=== PATIENT | female | born 1950 | race Caucasian/White ===

== ENCOUNTER 2017-07-19 15:29 | Outpatient (CLI) | payer MEDICARE ==
[2017-07-19 16:03] LABS: Mean Platelet Volume 7.3 fL (7.4-10.4); Red Blood Cell (RBC) Count 4.38 mill/uL (4.20-5.40); White Blood Cell (WBC) Count 6.7 thou/uL (4.8-10.8)
[2017-07-19 16:11] LABS: PTT 35.8 SEC (22.9-36.1)
[2017-07-19 16:32] LABS: Anion Gap 13 mmol/L (10-20); BUN (Urea Nitrogen) 13 mg/dL (9.8-20.1); Calc. Creatinine Clearance 0 mL/min (70-130); Calcium 9.1 mg/dL (7.8-10.44); Carbon Dioxide 23 mmol/L (23-31); Chloride 108 mmol/L (98-107); Estimated GFR-MDRD 68
== END 2017-07-19 15:30 | disposition home or self-care (01) ==
LOC: LABBT 15:29
PROVIDERS: ATTEND Specialist
DX: Z01.818 Encounter for other preprocedural examination (principal); Z51.81 Encounter for therapeutic drug level monitoring; I48.91 Unspecified atrial fibrillation; Z79.01 Long term (current) use of anticoagulants
CPT/HCPCS: 80048; 85027; 85610; 85730

== ENCOUNTER 2017-08-05 11:39 | Observation (INO) | payer MEDICARE ==
[2017-08-05 12:18] LABS: #Eosinphils 0.1 thou/uL (0.0-0.7); #Monocytes 0.6 thou/uL (0.11-0.59); #Neutrophils 3.5 thou/uL (1.40-6.50); %Basophils 0.6 % (0.0-1.0); %Eosinophils 1.1 % (0.0-10.0); %Lymphocytes 32.2 % (21.0-51.0); %Monocytes 9.1 % (0.0-10.0); Hematocrit 44.6 % (36.0-47.0); Mean Platelet Volume 7.2 fL (7.4-10.4); Red Blood Cell (RBC) Count 4.57 mill/uL (4.20-5.40); White Blood Cell (WBC) Count 6.1 thou/uL (4.8-10.8)
[2017-08-05 12:28] LABS: PTT 42.5 SEC (22.9-36.1); Prothrombin Time 19.2 SEC (12.0-14.7)
[2017-08-05 12:36] LABS: Anion Gap 13 mmol/L (10-20); BUN (Urea Nitrogen) 16 mg/dL (9.8-20.1); Calc. Creatinine Clearance 97 mL/min (70-130); Calcium 9.4 mg/dL (7.8-10.44); Carbon Dioxide 24 mmol/L (23-31); Chloride 107 mmol/L (98-107); Estimated GFR-MDRD 78
[2017-08-05] MEDS ORDERED: Heparin 10,000 UNITS/1 ML VIAL ONE ×3 (13:08→13:53)
[2017-08-05] MEDS ORDERED: Heparin 0 ML ONE (13:08)
[2017-08-05] MEDS ORDERED: Phenylephrine 10 MG/NS 250 ML 250 ML ONE (13:29)
[2017-08-05] MEDS ORDERED: Fentanyl 100 MCG/2 ML VIAL ONE ×2 (13:29→16:34)
[2017-08-05] MEDS ORDERED: Promethazine HCl 25 MG/ML VIAL ONE (13:29)
[2017-08-05] MEDS ORDERED: Iopamidol 370 76% 50 ML VIAL FS ONE (13:37)
[2017-08-05] MEDS ORDERED: Dexamethasone 20 MG/5 ML VIAL ONE (13:45)
[2017-08-05] MEDS ORDERED: Propofol 200 MG/20 ML VIAL ONE (13:45)
[2017-08-05] MEDS ORDERED: Glycopyrrolate 0.2 MG/ML 5 ML SYRINGE ONE (13:45)
[2017-08-05] MEDS ORDERED: Ondansetron HCl/PF 4 MG/2 ML Vial ONE (13:45)
[2017-08-05] MEDS ORDERED: Furosemide 40 MG/4 ML VIAL ONE (13:53)
[2017-08-05] MEDS ORDERED: Protamine Sulfate 50 MG/5 ML VIAL ONE (13:53)
[2017-08-05] MEDS ORDERED: Isoproterenol 0.2 MG/1 ML AMP ONE (15:08)
[2017-08-05] MEDS ORDERED: Promethazine HCl 25 MG/ML VIAL IM PRN (15:41)
[2017-08-05] MEDS ORDERED: Promethazine HCl 25 MG/ML VIAL SLOW IVP PRN (15:41)
[2017-08-05] MEDS ORDERED: Ondansetron HCl/PF 4 MG/2 ML Vial IVP PRN ×2 (15:41→16:17)
[2017-08-05] MEDS ORDERED: Bisacodyl 10 MG SUPP PR PRN (16:17)
[2017-08-05] MEDS ORDERED: diphenhydrAMINE 25 MG CAP PO PRN (16:17)
[2017-08-05] MEDS ORDERED: Mag-Al 1200 mg/1200 mg/30 ML UDCUP PO PRN (16:17)
[2017-08-05] MEDS ORDERED: traMADol HCl 50 MG TAB PO PRN (16:17)
[2017-08-05] MEDS ORDERED: Temazepam 15 MG CAP PO PRN (16:17)
[2017-08-05] MEDS ORDERED: Nitroglycerin 0.4 MG TAB (25 Tab Bottle) SL PRN (16:17)
[2017-08-05] MEDS ORDERED: Silver Sulfadiazine 1% Cream 50 GM JAR TOP PRN (16:17)
[2017-08-05] MEDS ORDERED: Acetaminophen 325 MG TAB PO PRN (16:17)
[2017-08-05] MEDS ORDERED: Bisacodyl 5 MG TAB PO PRN (16:17)
[2017-08-05 17:35] VITALS: BMI 26.5
[2017-08-05] MEDS: Sucralfate 1 GM TAB PO SCH ×2 (18:22→20:39)
--- NOTE | 2017-08-05 22:56 | CCL ---
PREOPERATIVE DIAGNOSIS: Atrial fibrillation. PROCEDURE PERFORMED: Atrial fibrillation ablation. PROCEDURE DETAILS: The patient came to the EP lab in the postabsorptive state. Informed consent wa s obtained. A out was called. The patient was sedated by a member, the Anesthesia staff. Once pat ient adequately sedated, the left and right femoral areas were prepped and draped in usual sterile f ashion as was the internal jugular area. Using ultrasound guidance, access was obtained x1 in the r ight femoral vein, x2 in the left femoral vein and x1 in the right internal jugular vein. Through the right internal jugular vein, a 7 Emirati sheath was placed and through that a 20 pole Duodeca cat heter was placed into the distal 10 poles in the coronary sinus for left atrial pacing and recording . A 10 Emirati ice catheter was advanced to the left femoral vein. Through a 10 Emirati sheath and p laced in the right atrium for intracardiac monitoring and guidance. Two [address] d in the right femoral vein and these were exchanged for long sheaths for transseptal puncture. Hep anabel bolus was given prior to transseptal function puncture a transseptal puncture was performed in the posterior septum under intracardiac echo guidance. A 10 pole 20 mm circular mapping catheter wa s advanced to the left atrium and with this catheter a 3 dimensional geometry was made through the a natomical mapping system Carto. A Carto ablation catheter was advanced and radiofrequency ablation w as applied around the pulmonary veins for isolation of all four pulmonary veins. In addition, ablat ion was delivered to the posterior wall of the left atrium. Ablation time was titrated with concern over esophageal temperature location and temperature utilizing an esophageal temperature probe. Af ter this, the veins were isolated and isoproterenol bolus was given with no evidence of extra pulmon adrian vein triggers or firing. Final numbers were as follows: Cycle length 745, IN 166, QRS 71, QTC 3 18, AH 97, HV 42. Left ventricular pacing was also initiated. The total RF time was 24.7 minutes. Total fluoroscopy time was 17.4 minutes. The prior catheters were then removed. Protamine was given and hemostasis obtained with manual pres sure. COMPLICATIONS: None acute. ESTIMATED BLOOD LOSS: Less than 30 mL PROCEDURE PERFORMED: EP study, pulmonary vein isolation. Additional ablation for atrial fibrillati on, CS and LA recording, LV pacing recording, drug infusion, 3D mapping, intracardiac echo, transse ptal puncture. CONCLUSIONS: 1. Paroxysmal atrial fibrillation. 2. Successful radiofrequency ablation for atrial fibrillation. RECOMMENDATIONS: The patient will be at bed rest. She will follow up with electrophysiology in 6-8 weeks and she will continue anticoagulant therapy as well as flecainide for now.
[2017-08-06] MEDS ORDERED: Topiramate 25 MG TAB PO SCH (09:00)
[2017-08-06] MEDS ORDERED: BOSWELLIA SERRA PO SCH (09:00)
[2017-08-06] MEDS ORDERED: Fish Oil 1,000 MG CAP PO SCH (09:00)
[2017-08-06] MEDS ORDERED: Metoprolol Tartrate 25 MG TAB PO SCH (09:00)
[2017-08-06] MEDS ORDERED: GLUCOSAMINE PO SCH (09:00)
[2017-08-06] MEDS ORDERED: COCONUT OIL 1000 MG PO SCH (09:00)
[2017-08-06] MEDS ORDERED: Rivaroxaban 10 MG TAB PO SCH (09:00)
[2017-08-06] MEDS ORDERED: Ascorbic Acid 500 mg Chewable Tablet PO SCH (09:00)
[2017-08-06] MEDS ORDERED: D3 PO SCH (09:00)
[2017-08-06] MEDS: Sucralfate 1 GM TAB PO SCH ×2 (09:18→13:36)
[2017-08-06 11:28] VITALS: BP 99/56; TEMP 98.3
--- NOTE | 2017-08-06 23:40 | PRG ---
DATE OF SERVICVE: 08/06/2017 SUBJECTIVE: Ms. Khan seems to be doing well one day post her pulmonary venous isolation procedure. OBJECTIVE DATA: VITAL SIGNS: Blood pressure is 99/56, heart rate 52, respiration 16, temperature 98.3 degrees Fahrenheit. PHYSICAL EXAMINATION: GENERAL: Alert and oriented woman, in no apparent distress. NECK: Supple. Jugular veins not distended. CHEST: Coarse. No crackles. HEART: Sounds are regular rate and rhythm, no murmur or gallop. ABDOMEN: Benign. Bowel sounds positive. EXTREMITIES: Lower extremities without edema, clubbing or cyanosis. DATABASE: EKGs and telemetry strips reviewed, reveals sinus rhythm with short atrial tachyarrhythmia run is noted overnight, spontaneously is resolving. ASSESSMENT AND PLAN: Ms. Khan is a pleasant 67-year-old woman with a history of paroxysmal atrial fibrillation, previously on suppression with flecainide, now she underwent pulmonary venous isolation procedure. She seems to be doing well one day post-procedure. Our plan is to discharge home without flecainide. She is advised to resume her anticoagulants, which is rivaroxaban 20 mg a day. She is also given Carafate and also will take Protonix 40 mg a day post-procedure. She has requested follow up in our office in 6 weeks or earlier if symptoms dictate. TUSHAR
--- NOTE | 2017-08-09 13:24 | EKG ---
Test Reason : PREOP Blood Pressure : / mmHG Vent. Rate : 060 BPM Atrial Rate : 060 BPM P-R Int : 182 ms QRS Dur : 086 ms QT Int : 442 ms P-R-T Axes : 072 015 032 degrees QTc Int : 442 ms Normal sinus rhythm Premature ectopic complexes When compared with ECG of 14-OCT-2011 12:39, No significant change was found Confirmed by MAILE MARCUS ([id number]) on 08/09/2017 1:24:24 PM Referred By: PARVEEN Confirmed By:MAILE MARCUS
--- NOTE | 2017-08-09 13:31 | EKG ---
Test Reason : Blood Pressure : / mmHG Vent. Rate : 074 BPM Atrial Rate : 074 BPM P-R Int : 162 ms QRS Dur : 092 ms QT Int : 432 ms P-R-T Axes : 071 -01 024 degrees QTc Int : 479 ms Normal sinus rhythm Nonspecific T wave abnormality Borderline ECG Confirmed by MAILE MARCUS ([id number]) on 08/09/2017 1:30:42 PM Referred By: PARVEEN Confirmed By:MAILE MARCUS
--- NOTE | 2017-08-09 15:54 | EKG ---
Test Reason : Blood Pressure : / mmHG Vent. Rate : 059 BPM Atrial Rate : 059 BPM P-R Int : 162 ms QRS Dur : 092 ms QT Int : 460 ms P-R-T Axes : 076 016 023 degrees QTc Int : 455 ms Sinus bradycardia Otherwise normal ECG Confirmed by MAILE MARCUS ([id number]) on 08/09/2017 3:54:25 PM Referred By: PARVEEN Confirmed By:MAILE MARCUS
== END 2017-08-06 14:15 | disposition home or self-care (01) ==
LOC: CCL 11:39 → 2SW 16:22
PROVIDERS: ADMIT Specialist; ATTEND Specialist
DX: I48.0 Paroxysmal atrial fibrillation (principal); I10 Essential (primary) hypertension; E66.9 Obesity, unspecified; Z68.26 Body mass index [BMI] 26.0-26.9, adult; Z88.8 Allergy status to other drugs, medicaments and biological substances; Z88.2 Allergy status to sulfonamides; Z79.899 Other long term (current) drug therapy
CPT/HCPCS: 36005; 75820; 76942; 80048; 85025; 85347 ×2; 85610; 85730; 93005 ×2; 93613; 93622; 93623; 93656; 93657; 93662; 96374; C1731; C1769; G0378; 36415; 93010; J1100; J1644; J1940; J2405; J2550; J2704; J2720; J3010

== ENCOUNTER 2018-02-01 15:42 | Outpatient (CLI) | payer MEDICARE ==
[2018-02-01 16:29] LABS: Hemoglobin 13.7 g/dL (12.0-16.0); Mean Corpuscular Hemoglobin 32.5 pg (27.0-31.0); Mean Corpuscular Volume 95.8 fl (81.0-99.0); Platelet Count 299 thou/uL (130-400); RBC Distribution Width 11.7 % (11.5-14.5); Red Blood Cell (RBC) Count 4.21 mill/uL (4.20-5.40); White Blood Cell (WBC) Count 5.6 thou/uL (4.8-10.8)
[2018-02-01 16:35] LABS: INR-International Normal Ratio 1.3; PTT 40.6 SEC (22.9-36.1); Prothrombin Time 16.4 SEC (12.0-14.7)
[2018-02-01 16:50] LABS: Anion Gap 12 mmol/L (10-20); BUN (Urea Nitrogen) 12 mg/dL (9.8-20.1); Calc. Creatinine Clearance 0 mL/min (70-130); Calcium 9.8 mg/dL (7.8-10.44); Carbon Dioxide 28 mmol/L (23-31); Chloride 106 mmol/L (98-107); Estimated GFR-MDRD 78; Glucose 99 mg/dL (80-115); Potassium 3.8 mmol/L (3.5-5.1); Sodium 142 mmol/L (136-145)
--- NOTE | 2018-02-06 08:45 | EKG ---
Test Reason : Blood Pressure : / mmHG Vent. Rate : 067 BPM Atrial Rate : 067 BPM P-R Int : 160 ms QRS Dur : 086 ms QT Int : 404 ms P-R-T Axes : 071 029 048 degrees QTc Int : 426 ms Normal sinus rhythm Normal ECG When compared with ECG of 06-AUG-2017 06:51, No significant change was found Confirmed by JASON NAGEL MD ([id number]) on 02/06/2018 8:45:06 AM Referred By: HÉCTOR Confirmed By:JASON NAGEL MD
== END 2018-02-01 15:43 | disposition home or self-care (01) ==
LOC: LABBT 15:42
PROVIDERS: ATTEND Internal Medicine Cardiovascular Disease
DX: Z01.818 Encounter for other preprocedural examination (principal); I48.91 Unspecified atrial fibrillation; Z88.2 Allergy status to sulfonamides; Z88.8 Allergy status to other drugs, medicaments and biological substances
CPT/HCPCS: 80048; 85027; 85610; 85730; 93005; 93010

== ENCOUNTER 2018-02-03 08:57 | Day surgery (SDC) | payer MEDICARE ==
[2018-02-03] MEDS ORDERED: Heparin 10,000 UNITS/1 ML VIAL ONE ×2 (10:06→12:47)
[2018-02-03] MEDS ORDERED: Lidocaine 1% (PF) 30 ML VIAL ONE (10:06)
[2018-02-03] MEDS ORDERED: Propofol 500 MG/50 ML VIAL ONE (10:54)
[2018-02-03] MEDS ORDERED: Phenylephrine HCL 10 MG/ML VIAL ONE (11:06)
[2018-02-03] MEDS ORDERED: Fentanyl 250 MCG/5 ML VIAL ONE (11:16)
[2018-02-03] MEDS ORDERED: Propofol 1,000 MG/100 ML VIAL IV ONE ×2 (11:36→12:38)
[2018-02-03] MEDS ORDERED: Isoproterenol 0.2 MG/1 ML AMP ONE (11:53)
[2018-02-03] MEDS ORDERED: Protamine Sulfate 50 MG/5 ML VIAL ONE (13:53)
[2018-02-03] MEDS ORDERED: Fentanyl 100 MCG/2 ML VIAL ONE (14:26)
[2018-02-03 15:30] VITALS: BMI 27.6
[2018-02-03] MEDS ORDERED: Non-Formulary Medication 1 EACH PO PRN (15:58)
[2018-02-03] MEDS ORDERED: Promethazine HCl 25 MG/ML VIAL IM/IV PRN (15:58)
[2018-02-03] MEDS ORDERED: Ondansetron HCl/PF 4 MG/2 ML Vial IVP PRN (15:58)
[2018-02-03] MEDS ORDERED: PHENYLEPHRINE-NS 100 MCG/ML 10 ML SYRINGE ONE (16:46)
[2018-02-03] MEDS ORDERED: Ondansetron HCl/PF 4 MG/2 ML Vial ONE (16:46)
[2018-02-03] MEDS ORDERED: Heparin 30,000 units/30 ml VIAL ONE (16:46)
[2018-02-03] MEDS ORDERED: Dexamethasone 20 MG/5 ML VIAL ONE (16:46)
[2018-02-03] MEDS ORDERED: Potassium Chloride 20 MEQ TAB PO SCH (17:00)
[2018-02-03] MEDS ORDERED: Furosemide 20 MG/2 ML VIAL SLOW IVP SCH (17:00)
--- NOTE | 2018-02-03 17:02 | OP ---
DATE OF PROCEDURE: 02/03/2018 PROCEDURES: 1. Comprehensive EP testing with and without left atrial pacing and recording. 2. Transseptal catheterization x2. 3. Intracardiac echocardiography. 4. 3D mapping ablation. CLINICAL INDICATION: Atrial fibrillation. VENEER GLUER: Dion Thorne M.D. ASA CLASSIFICATION: 3. ANESTHESIA: Total IV anesthesia followed by general endotracheal anesthesia. ADDITIONAL CARDIAC MEDICATIONS: Isoproterenol 10 mcg per minute infusion. Total heparin given 21,00 0 units. Total protamine given 40 mg. ACUTE COMPLICATIONS: None apparent. METHODS: After informed consent was obtained, the patient taken to the EP lab in fasting state. Bot h groins were prepped and draped using ultrasound guidance. Right and left femoral veins were access ed and a 10 Romanian and 8 Romanian sheath placed in left groin. Two 8 Romanian sheaths were placed in rig ht groin. All 8 Romanian sheaths were placed by long sheaths for catheter stability. A 10 Romanian echo probe placed in left groin advanced to the right atrium and right ventricle for imaging. A 20 pole catheter placed in left groin advanced to the coronary sinus and in the nikki terminalis. A circula r ablation catheter placed in the right groin advanced into the right atrium and 3D map was obtained of the right atrium and the coronary sinus. Transseptal catheterization was performed and a 3D map w as obtained at the left atrium. Temperature probe was placed in the esophagus and monitored temperat ures during the posterior wall ablation. Pulmonary veins were isolated at the beginning of the proce dure from previous ablation. Patient had spontaneous firing from the appendage and from the coronary sinus. The coronary sinus was ablated distally and the appendage was delayed, but was not completel y isolated. Extensive ablation was also performed of the roof the left atrium. No lesions were requ ired in the right atrium other than within the coronary sinus itself. At the conclusion of procedure , catheters were removed. Sheaths were pulled. Hemostasis was achieved direct pressure. RESULTS: 1. Baseline intervals, HV interval 45 milliseconds. 2. Atrial function. The patient was in sinus rhythm but had spontaneous atrial tachycardia from the CS and frequent PACs from the appendage. Both of these were ablated as described in method section. 3. Ablation details total of 51 minutes and 18 seconds of RF were delivered with an open, irrigated noncontact for sensing BiosCeQurter ablation catheter. IMPRESSION: Ablation of the left atrium including isolation of the roof. A delay in the coronary si nus and isolation of the distal CS for treatment of atrial tachycardia and atrial fibrillation. RECOMMENDATION: Antibiotic prophylaxis.
[2018-02-03] MEDS ORDERED: Prevnar 13-Val Conj/PF 0.5 ML SYRINGE IM ONE (17:30)
[2018-02-03] MEDS: Colchicine 0.6 MG TAB PO SCH (20:21)
[2018-02-04] MEDS ORDERED: Multivit, Therapeutic 1 TAB PO SCH (09:00)
[2018-02-04] MEDS ORDERED: Ascorbic Acid 500 mg Chewable Tablet PO SCH (09:00)
[2018-02-04] MEDS ORDERED: Rivaroxaban 10 MG TAB PO SCH (09:00)
[2018-02-04] MEDS ORDERED: COCONUT OIL 1000 MG PO SCH (09:00)
[2018-02-04] MEDS ORDERED: Topiramate 25 MG TAB PO SCH (09:00)
[2018-02-04] MEDS ORDERED: Fish Oil 1,000 MG CAP PO SCH (09:00)
[2018-02-04] MEDS ORDERED: Metoprolol Tartrate 25 MG TAB PO SCH (09:00)
[2018-02-04] MEDS: Colchicine 0.6 MG TAB PO SCH (09:14)
[2018-02-04 11:42] VITALS: TEMP 97.9
[2018-02-04 11:48] VITALS: BP 138/88
[2018-02-04] MEDS ORDERED: Metoprolol Tartrate 5 MG/5 ML VIAL IVP SCH (13:01)
[2018-02-04] MEDS ORDERED: Flecainide 50 MG TAB PO SCH ×2 (13:15→21:00)
--- NOTE | 2018-02-04 21:45 | DIS ---
Mariela Otero, FUNMI-C, dictating as scribe for Allen Zelaya M.D. ATTENDING PHYSICIAN: Allen Zelaya M.D. OPERATING PHYSICIAN: Dion Thorne M.D. DATE OF ADMISSION: 02/03/2018 DATE OF DISCHARGE: 02/04/2018 FINAL DIAGNOSIS: Recurrent atrial fibrillation. PROCEDURES PERFORMED: Include ablation of the left atrium including isolation with roof. A delay in the CS and isolation of the distal CS for treatment of atrial tachycardia and atrial fibrillation. Total of 51 minutes and 18 seconds RF energy lesions delivered. HISTORY OF PRESENT ILLNESS: Ms. Khan is a very pleasant 67-year-old female known to our practice f or history of atrial arrhythmias. She initially underwent ablation for atrial fibrillation in ; however, had recurrence of her arrhythmias as well frequent PACs and an atypical atrial flutter, p rompting redo ablation that was performed this hospitalization. She received extensive ablation and was placed on colchicine. Her recovery has been uneventful. Her groin sites are stable without gina dori and just mild tenderness. She has been up ambulating normally and tolerating p.o. intake and vo iding normally. Vital signs have been stable. She maintained sinus rhythm overnight with rates in t he 60s. However, at 11:30 this morning, she did convert into atrial fibrillation with rate between 1 20 and 130 beats per minute. She maintained in AFib for 2 hours and then spontaneously converted shala k to a sinus rhythm. For this reason, we will have to resume her flecainide of 50 mg b.i.d. in addit ion to continuing metoprolol 25 mg daily as taken before. Despite going back into atrial fibrillatio n, she remained asymptomatic and is feeling well today. She is also to continue her Xarelto without interruption for the next 3 months. The patient will follow up in clinic in 4-6 weeks or sooner if n eeded. DISCHARGE MEDICATIONS: Vitamin C daily; vitamin D3 daily; coconut oil daily; new prescription for Co lcrys 0.6 mg p.o. b.i.d.; fish oil daily; flecainide 50 mg b.i.d.; Lasix 40 mg daily x3 days, then as needed for shortness of breath and swelling; metoprolol succinate 25 mg daily; multivitamin daily; P rotonix 40 mg daily x1 month; potassium chloride 20 mEq daily x3 days, then as needed only if taking Lasix; Xarelto 20 mg daily; Carafate 1 gram p.o. q.i.d. x2 weeks; and topiramate 50 mg p.o. daily. DISCHARGE INSTRUCTIONS: No soaking baths or lifting greater than 25 pounds for the next one week. R ecommend heart healthy diet. After one week, the patient is to resume normal activity gradually and as tolerated. She will follow up in clinic in 4-6 weeks or sooner if needed for any recurrence of sy mptoms or concerns she may have in the interim. The patient already has an event monitor at home for continued arrhythmia monitoring.
--- NOTE | 2018-02-06 08:49 | EKG ---
Test Reason : POST ABLATION Blood Pressure : / mmHG Vent. Rate : 068 BPM Atrial Rate : 068 BPM P-R Int : 178 ms QRS Dur : 090 ms QT Int : 450 ms P-R-T Axes : 075 031 035 degrees QTc Int : 478 ms Normal sinus rhythm Normal ECG When compared with ECG of 01-FEB-2018 16:15, (Unconfirmed) QT has lengthened Confirmed by SHONA JOHN, JASON ([id number]) on 02/06/2018 8:49:15 AM Referred By: HÉCTOR Confirmed By:JASON NAGEL MD
--- NOTE | 2018-02-06 08:52 | EKG ---
Test Reason : Blood Pressure : / mmHG Vent. Rate : 058 BPM Atrial Rate : 058 BPM P-R Int : 180 ms QRS Dur : 090 ms QT Int : 468 ms P-R-T Axes : 086 024 027 degrees QTc Int : 459 ms Sinus bradycardia Otherwise normal ECG When compared with ECG of 03-FEB-2018 14:44, (Unconfirmed) No significant change was found Confirmed by SHONA JOHN, JASON ([id number]) on 02/06/2018 8:52:13 AM Referred By: HÉCTOR Confirmed By:JASON NAGEL MD
--- NOTE | 2018-02-06 08:53 | EKG ---
Test Reason : ? AFIB Blood Pressure : / mmHG Vent. Rate : 124 BPM Atrial Rate : 166 BPM P-R Int : 000 ms QRS Dur : 088 ms QT Int : 326 ms P-R-T Axes : 000 012 -07 degrees QTc Int : 468 ms Atrial fibrillation with rapid ventricular response Nonspecific ST abnormality , probably digitalis effect Abnormal ECG Confirmed by SHONA JOHN, JASON ([id number]) on 02/06/2018 8:53:24 AM Referred By: [facility] Confirmed By:JASON NAGLE MD
== END 2018-02-04 15:02 | disposition home or self-care (01) ==
LOC: CCL 08:57 → 2SW 15:26 → 2NO 02-04 14:33 → 2SW 02-04 14:38 → CCL 02-04 15:02
PROVIDERS: ATTEND Internal Medicine Cardiovascular Disease
PROC: 02583ZZ Destruction of Conduction Mechanism, Percutaneous Approach (ICD-10-PCS; principal; 2018-02-03)
PROC: 02K83ZZ Map Conduction Mechanism, Percutaneous Approach (ICD-10-PCS; 2018-02-03)
PROC: 4A023FZ Measurement of Cardiac Rhythm, Percutaneous Approach (ICD-10-PCS; 2018-02-03)
PROC: 4A0234Z Measurement of Cardiac Electrical Activity, Percutaneous Approach (ICD-10-PCS; 2018-02-03)
DX: I48.1 Persistent atrial fibrillation (principal); Z88.2 Allergy status to sulfonamides; Z88.8 Allergy status to other drugs, medicaments and biological substances; Z79.01 Long term (current) use of anticoagulants; Z79.899 Other long term (current) drug therapy; Z98.890 Other specified postprocedural states
CPT/HCPCS: 76942; 85347 ×2; 93005 ×2; 93613; 93623; 93656; 93657; 93662; 96374; C1731; C1732 ×3; C1759; C1769; 93010; J1100; J1644; J1940; J2001; J2370; J2405; J2704; J2720; J3010

== ENCOUNTER 2018-02-22 15:46 | Outpatient (CLI) | payer MEDICARE ==
[2018-02-22 16:21] LABS: Hemoglobin 13.6 g/dL (12.0-16.0); Mean Corpuscular HGB CONC 33.1 g/dL (32.0-36.0); Mean Corpuscular Hemoglobin 31.7 pg (27.0-31.0); Mean Corpuscular Volume 95.8 fl (81.0-99.0); Platelet Count 328 thou/uL (130-400); RBC Distribution Width 11.8 % (11.5-14.5); Red Blood Cell (RBC) Count 4.29 mill/uL (4.20-5.40); White Blood Cell (WBC) Count 5.6 thou/uL (4.8-10.8)
[2018-02-22 16:27] LABS: INR-International Normal Ratio 1.3; Prothrombin Time 16.4 SEC (12.0-14.7)
[2018-02-22 16:28] LABS: PTT 37.4 SEC (22.9-36.1)
[2018-02-22 16:40] LABS: Anion Gap 14 mmol/L (10-20); BUN (Urea Nitrogen) 14 mg/dL (9.8-20.1); Calc. Creatinine Clearance 0 mL/min (70-130); Calcium 9.2 mg/dL (7.8-10.44); Carbon Dioxide 23 mmol/L (23-31); Chloride 107 mmol/L (98-107); Estimated GFR-MDRD 78; Glucose 100 mg/dL (80-115); Sodium 140 mmol/L (136-145)
== END 2018-02-22 15:47 | disposition home or self-care (01) ==
LOC: LABBT 15:46
PROVIDERS: ATTEND Internal Medicine Cardiovascular Disease
DX: Z01.818 Encounter for other preprocedural examination (principal); I48.91 Unspecified atrial fibrillation
CPT/HCPCS: 80048; 85027; 85610; 85730; 93005; 93010

== ENCOUNTER 2019-09-07 14:42 | Inpatient (IN) | payer MEDICARE ==
[2019-09-07] MEDS ORDERED: Diltiazem 125 MG/25 ML ONE ×2 (14:48→16:47)
[2019-09-07 15:16] LABS: #Lymphocytes 1.9 thou/uL (1.20-3.40); #Monocytes 0.9 thou/uL (0.11-0.59); #Neutrophils 8.3 thou/uL (1.40-6.50); %Basophils 0.2 % (0.0-1.0); %Eosinophils 0.1 % (0.0-10.0); %Lymphocytes 17.1 % (21.0-51.0); %Monocytes 7.7 % (0.0-10.0); %Neutrophils 74.9 % (42.0-75.0); Hemoglobin 13.6 g/dL (12.0-16.0); Mean Corpuscular HGB CONC 32.9 g/dL (32.0-36.0); Mean Corpuscular Hemoglobin 31.2 pg (27.0-31.0); Mean Platelet Volume 7.6 fL (7.4-10.4); Platelet Count 365 thou/uL (130-400); RBC Distribution Width 12.2 % (11.5-14.5); Red Blood Cell (RBC) Count 4.34 mill/uL (4.20-5.40); White Blood Cell (WBC) Count 11.1 thou/uL (4.8-10.8)
--- NOTE | 2019-09-07 15:19 | RAD ---
Chest AP view INDICATION: Chest pain COMPARISON: October 14, 2011 FINDINGS: Lungs:The lungs are clear Cardiac silhouette:There is stable [id number] cardiomegaly. Vascular calcifications of the aort ic arch are stable. Pulmonary vasculature:Normal Pleural spaces:No pleural effusion or pneumothorax is demonstrated. Upper abdomen:No abnormality seen. Osseous structures: No acute osseous abnormality. Additional findings:None. IMPRESSION: No acute cardiopulmonary abnormality.
[2019-09-07 15:36] LABS: Chloride 108 mmol/L (98-107); Sodium 139 mmol/L (136-145)
[2019-09-07 15:47] LABS: ALT (SGPT) 52 U/L (8-55); AST (SGOT) 42 U/L (5-34); Albumin 4.3 g/dL (3.4-4.8); Alkaline Phosphatase 66 U/L (40-110); BUN (Urea Nitrogen) 32 mg/dL (9.8-20.1); Bilirubin, Total 0.7 mg/dL (0.2-1.2); CK (CPK) 60 U/L (29-168); Calc. Creatinine Clearance 0 mL/min (70-130); Calcium 9.3 mg/dL (7.8-10.44); Carbon Dioxide 24 mmol/L (23-31); Estimated GFR-MDRD 57; Globulin 2.9 g/dL (2.4-3.5); Glucose 127 mg/dL (80-115); Protein, Total 7.2 g/dL (6.0-8.3)
[2019-09-07 15:54] LABS: Anion Gap 11 mmol/L (10-20)
[2019-09-07 16:00] LABS: CKMB 2.7 ng/mL (0-6.6)
[2019-09-07] MEDS ORDERED: Aspirin Chewable 81 MG TAB ONE (16:47)
[2019-09-07] MEDS ORDERED: Digoxin 0.125 MG TAB ONE (16:58)
[2019-09-07] MEDS ORDERED: Acetaminophen 650 MG Suppository PR PRN (17:14)
[2019-09-07] MEDS ORDERED: Bisacodyl 5 MG TAB PO PRN (17:14)
[2019-09-07] MEDS ORDERED: Acetaminophen 325 MG TAB PO PRN (17:14)
[2019-09-07] MEDS ORDERED: Ondansetron PF 4 MG/2 ML Vial IVP PRN (17:14)
[2019-09-07] MEDS ORDERED: Diltiazem 125 MG in Sodium Chloride 0.9% 100 ML IVPB SCH (17:30)
--- NOTE | 2019-09-07 18:05 | HP ---
PRIMARY CARE PROVIDER: Dr. Luis Montejo. CHIEF COMPLAINT: Generalized weakness. HISTORY OF PRESENT ILLNESS: Ms. hKan is a pleasant 69-year-old lady, who was seen at [facility] on September 07, 2019. She has a history of atrial fibrillation, for which she underwent ablations in the past. The last one was in January 2018. She sees Dr. Ortiz for cardiology and Dr. Zelaya and Dr. Thorne for electrophysiology. She reports that she was doing well until 2 days ago. Two days ago, she developed palpitations. She checked her heart rate. She found that it was in the 170s. The palpitations resolved that night. She went to work yesterday and was fine. She went to work today. Today, she felt she was weak all over the body. She also found that she had to take deep breaths to feel comfortable. She went to [facility] and was advised to go to the emergency room here since most of her cardiology care is at this hospital. REVIEW OF SYSTEMS: All systems were reviewed and found to be negative except for the pertinent positives mentioned above. PAST MEDICAL HISTORY: Nephrolithiasis and atrial fibrillation. PAST SURGICAL HISTORY: Appendectomy and cardiac ablation x2. FAMILY HISTORY: Atrial fibrillation in her mother and myocardial infarction in her maternal grandfather. SOCIAL HISTORY: No history of tobacco use, alcohol use, or recreational drug use. ALLERGIES: NO KNOWN DRUG ALLERGIES. CURRENT MEDICATIONS: These need to be clarified, but in the past, she was on 1. Vitamin C. 2. Vitamin D3. 3. Coconut oil. 4. Fish oil. 5. Flecainide. 6. Lopressor. 7. Multivitamins. 8. Rivaroxaban. 9. Topiramate. 10. Colchicine. PHYSICAL EXAMINATION: GENERAL: Ms. Khan is awake and alert, not in acute distress. VITAL SIGNS: Blood pressure is 140/93, pulse 128, respiratory rate 16, and oxygen saturation 99% on room air. She is afebrile. EYES: No scleral icterus, no conjunctival pallor. ENT: Moist mucosal membranes. No oropharyngeal erythema or exudates. NECK: Supple, nontender, trachea is midline. RESPIRATORY: Accessory muscles of breathing are not active. Chest wall movements are symmetric bilaterally. Lungs are clear to auscultation without wheeze, rhonchi, or crepitations. CARDIOVASCULAR: S1 and S2 are heard, tachycardic and irregular. Peripheral pulses palpable. ABDOMEN: Soft, nontender, bowel sounds heard. NEUROLOGIC: Cranial nerves 2 through 12 are intact. MUSCULOSKELETAL: Power is 5/5 in all 4 extremities. SKIN: No rashes or subcutaneous nodules. LYMPHATIC: No cervical lymphadenopathy. PSYCHIATRIC: Normal mood, normal affect, the patient is oriented to person, place, and time. LABS: Ms. Khan's labs and investigations were reviewed. I reviewed her electrocardiogram, which shows atrial fibrillation with rapid ventricular response. I also reviewed her chest x-ray, which does not show any pulmonary infiltrates. She has mild leukocytosis with 11,100 white cells, of which 75% are neutrophils, normal hemoglobin, normal platelet count, normal sodium, normal potassium, normal creatinine, elevated blood urea nitrogen of 32, indeterminate troponin-I of 0.256, elevated BNP of 712.5, mildly elevated AST of 42, otherwise unremarkable liver profile and normal TSH. ASSESSMENT AND PLAN: Ms. Khan is a pleasant 69-year-old lady, who was seen at [facility] on September 07, 2019. Her problem list includes: 1. Atrial fibrillation with rapid ventricular response: The patient has been started on a Cardizem drip, which I will continue. She will be admitted to telemetry floor. Cardiology Service will be consulted for opinion and help with management. 2. Nephrolithiasis: Not an acute issue at this time. 3. Indeterminate troponin-I: Most likely secondary to atrial fibrillation with rapid ventricular response. We will recheck troponin level. 4. Abnormal LFTs: The patient has isolated elevation of AST, elevation is mild, could be secondary to volume overload/congestive heart failure, since she is also presenting with elevated BNP. We will recheck LFTs. Many thanks for allowing me to participate in your patient's care. Please feel free to contact me with any questions or concerns. LEVEL OF RISK: High. LEVEL OF COMPLEXITY: High. Job ID: [id number]
[2019-09-07 18:33] LABS: Troponin I 0.233 ng/mL (< 0.028)
[2019-09-07 19:17] VITALS: BMI 28.1
[2019-09-07 21:32] LABS: Troponin I 0.227 ng/mL (< 0.028)
[2019-09-08 04:45] LABS: #Lymphocytes 1.8 thou/uL (1.20-3.40); #Monocytes 0.7 thou/uL (0.11-0.59); %Basophils 0.2 % (0.0-1.0); %Eosinophils 0.5 % (0.0-10.0); %Lymphocytes 24.3 % (21.0-51.0); %Monocytes 8.8 % (0.0-10.0); %Neutrophils 66.3 % (42.0-75.0); Mean Corpuscular HGB CONC 30.5 g/dL (32.0-36.0); Mean Corpuscular Hemoglobin 28.9 pg (27.0-31.0); Mean Corpuscular Volume 94.6 fL (78.0-98.0); Mean Platelet Volume 7.5 fL (7.4-10.4); Platelet Count 343 thou/uL (130-400); RBC Distribution Width 12.2 % (11.5-14.5); Red Blood Cell (RBC) Count 4.51 mill/uL (4.20-5.40); White Blood Cell (WBC) Count 7.5 thou/uL (4.8-10.8)
[2019-09-08 05:03] LABS: Anion Gap 9 mmol/L (10-20); BUN (Urea Nitrogen) 24 mg/dL (9.8-20.1); Calc. Creatinine Clearance 98 mL/min (70-130); Calcium 8.5 mg/dL (7.8-10.44); Carbon Dioxide 24 mmol/L (23-31); Chloride 110 mmol/L (98-107); Estimated GFR-MDRD 83; Glucose 126 mg/dL (80-115); Potassium 3.9 mmol/L (3.5-5.1); Sodium 139 mmol/L (136-145)
[2019-09-08 05:05] LABS: ALT (SGPT) 53 U/L (8-55); AST (SGOT) 35 U/L (5-34); Albumin 3.9 g/dL (3.4-4.8); Alkaline Phosphatase 63 U/L (40-110); Bilirubin, Direct 0.2 mg/dL (0.1-0.3); Bilirubin, Total 0.6 mg/dL (0.2-1.2); Protein, Total 6.6 g/dL (6.0-8.3)
[2019-09-08] MEDS ORDERED: ASCORBIC ACID PO SCH (09:00)
[2019-09-08] MEDS ORDERED: Non-Formulary Item 1 EACH (Topiramate [Topiramate] 50 MG) PO SCH (09:00)
[2019-09-08] MEDS ORDERED: DICLOFENAC SODIUM 75 MG PO SCH (09:00)
[2019-09-08] MEDS ORDERED: Non-Formulary Item 1 EACH (Multivitamin [Multivitamins] 1 CAP) PO SCH (09:00)
[2019-09-08] MEDS ORDERED: CHOLECALCIFEROL PO SCH (09:00)
[2019-09-08] MEDS ORDERED: [UNRECOGNIZED DRUG - OTHER] PO SCH (09:00)
[2019-09-08] MEDS ORDERED: COCONUT OIL PO SCH (09:00)
[2019-09-08] MEDS ORDERED: Non-Formulary Item 1 EACH (Rivaroxaban [Xarelto] 20 MG) PO SCH (09:00)
[2019-09-08] MEDS ORDERED: Metoprolol Tartrate 25 MG TAB PO SCH (09:00)
[2019-09-08] MEDS: Ascorbic Acid 500 mg Chewable Tablet PO SCH (10:34)
[2019-09-08] MEDS: Fish Oil 1,000 MG CAP PO SCH (10:34)
[2019-09-08] MEDS: Topiramate 25 MG TAB PO SCH (10:35)
[2019-09-08] MEDS: Rivaroxaban 10 MG TAB PO SCH (10:35)
[2019-09-08] MEDS: Multivit, Therapeutic 1 TAB PO SCH (10:35)
[2019-09-08] MEDS ORDERED: Lidocaine 1% PF 5 ML VIAL ONE ×2 (11:07→15:46)
[2019-09-08] MEDS ORDERED: PROPOFOL 200 MG/20 ML VIAL ONE (11:07)
[2019-09-08] MEDS ORDERED: Flecainide 50 MG TAB PO SCH ×2 (13:41→14:00)
--- NOTE | 2019-09-08 15:27 | PDOC.HOSPP ---
- Subjective Encounter Date: 09/08/19 Encounter Time: 08:20 Subjective: Pt seen for followup re:afib with rvr. feels well, no complaints. - Objective Vital Signs & Weight: Vital Signs (12 hours) Temp Pulse Resp BP Pulse Ox 09/08/19 11:50 97.9 F 93 16 155/97 H 97 09/08/19 07:05 97.7 F 86 16 126/84 99 Weight Weight 180 lb I&O: 09/07/19 09/08/19 09/09/19 06:59 06:59 06:59 Intake Total 330 Balance 330 Result Diagrams: 09/08/19 04:05 09/09/19 09:25 Additional Labs: Labs and MARs reviewed by me EKG Reviewed by me: Yes (Tele: sebastien pearson) Hospitalist ROS - Review of Systems Cardiovascular: denies: chest pain, palpitations, orthopnea, paroxysmal noc. dyspnea, edema, light headedness Gastrointestinal: denies: nausea, vomiting, abdominal pain, diarrhea, constipation, melena, hematochezia - Medication Medications: Active Medications Generic Name Dose Route Start Last Admin Trade Name Ciroq PRN Reason Stop Dose Admin Ascorbic Acid 1,500 mg 09/08/19 09:00 09/08/19 10:34 Vitamin C PO 1,500 mg DAILY RADHA Administration Cholecalciferol 2,000 units 09/08/19 09:00 09/08/19 10:35 Vitamin D3 PO 2,000 units DAILY RADHA Administration Fish Oil 2,000 mg 09/08/19 09:00 09/08/19 10:34 Fish Oil PO 2,000 mg DAILY RADHA Administration Diltiazem HCl 125 mg/ Sodium 125 mls @ 7.5 mls/hr 09/07/19 17:30 09/08/19 08: 56 Chloride IVPB 125 mls INF RADHA Administration Protocol 7.5 MG/HR Multivitamins 1 tab 09/08/19 09:00 09/08/19 10:35 Theragran PO 1 tab DAILY RADHA Administration Rivaroxaban 20 mg 09/08/19 09:00 09/08/19 10:35 Xarelto PO 20 mg DAILY RADHA Administration Sodium Chloride 10 ml 09/08/19 09:00 09/08/19 10:36 Flush - Normal Saline IVF 10 ml Q12HR RADHA Administration Topiramate 50 mg 09/08/19 09:00 09/08/19 10:35 Topamax PO 50 mg DAILY RADHA Administration - Exam General Appearance: NAD Eye: anicteric sclera ENT: moist mucosa Neck: supple, no JVD Heart: no rubs, irregular Respiratory: CTAB Gastrointestinal: soft, non-tender Extremities: no edema Psychiatric: normal affect, normal behavior Hosp A/P (1) Atrial fibrillation with RVR Code(s): I48.91 - UNSPECIFIED ATRIAL FIBRILLATION Status: Acute (2) Acute myocardial infarction Code(s): I21.9 - ACUTE MYOCARDIAL INFARCTION, UNSPECIFIED Status: Deleted Qualifiers: Myocardial infarction type: type 2 Qualified Code(s): I21.A1 - Myocardial infarction type 2 - Plan out of bed/ambulate Continue CCB. Await cardiology opinion.
[2019-09-08] MEDS ORDERED: PROPOFOL 0 ML ONE (15:38)
[2019-09-08] MEDS ORDERED: PROPOFOL 20 ML ONE (15:39)
--- NOTE | 2019-09-08 16:04 | CON ---
DATE OF CONSULTATION: PRIMARY CARE DOCTOR: Dr. Luis Montejo. PRIMARY MULTIPLEX OPERATOR: Dr. Ortiz. REASON FOR CARDIOLOGY CONSULT: Atrial fibrillation with right rapid ventricular response. HISTORY OF PRESENT ILLNESS: Ms. Khan is a very present 69-year-old female with a significant history of atrial fibrillation status post atrial fibrillation ablation in January 2018, hypertension. After the patient underwent atrial fibrillation cardioversion in January 2018, the patient was doing relatively well, but this Wednesday night, the patient started having palpitation in her chest. She took extra of metoprolol 25 mg half tablet at night. From morning, she started feeling more tired years and the patient needs to take a deep breath. On Wednesday, she went to [place] and [facility], and the patient was found to have heart rate elevated and fluctuated blood pressure. Due to those findings, the patient was recommend to present to the emergency department for further evaluation and treatment. At the ER, the patient was found to have atrial fibrillation with heart rate 170. Right now, the patient's heart rate has been 70s to 80s with occasional up to the 150 with movement with diltiazem . Prior to this event, during, and at this moment, the patient denied any cardiac admission, chest pain, heaviness, tightness, dizziness, lightheadedness, or any other cardiac complaints except feeling fatigued and shortness of breath. The patient had an echocardiogram done at Dr. Ortiz's office in October 2018 with EF 55% to 60%, mild left atrium enlargement, mild left ventricular dilation, moderate to severe mitral valve regurgitation, moderate tricuspid regurgitation, and dilated IVC. The patient had a stress test done in June 2018 with no reversible ischemia. PAST MEDICAL HISTORY: Atrial fibrillation with ablation, hypertension, hyperlipidemia, goiter. PAST SURGICAL HISTORY: Appendectomy, atrial fibrillation ablation in January 2018. FAMILY HISTORY: The patient's mother had a history of atrial fibrillation. The patient's maternal side has extensive hypertension, myocardial infarction. The patient's maternal grandfather due to PA at the age of 69. The patient's brother has a history of atrial fibrillation and hypertension. The patient another brother due to cardiac arrest at the age of 71. The patient's two sister had a history of CVA. SOCIAL HISTORY: The patient is . She has four children who living well, however, one of her son has CVA at the age of 20. They were told that that was from a congenital problem. The patient denies ETOH, tobacco abuse, or illicit drug abuse. She does not do exercise, but she is very active at work. 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 She drinks 1 to 2 cup of decaf caffeinated coffee on the weekend only. ALLERGIES: SHE HAS NO KNOWN DRUG ALLERGIES. HOME MEDICATIONS: 1. She is on topiramate 50 mg once a day. 2. Metoprolol succinate 25 mg once a day. 3. Coconut oil 1000 mg 2 tablets once a day. 4. Vitamin C 1500 mg once a day. 5. Multivitamin 1 tablet once a day. 6. Fish oil 2000 mg once a day. 7. Vitamin D3 2000 unit once a day. 8. Xarelto 20 mg once a day. 9. Diclofenac sodium 75 mg once a day. REVIEW OF SYSTEMS: Twelve-point review of systems negative unless otherwise mentioned in the HPI. PHYSICAL EXAMINATION: VITAL SIGNS: Blood pressure 155/97, temperature 97.9, pulse is 93, respiratory rate 16, O2 saturation 97% on room air. GENERAL: The patient is alert and oriented x4, not in acute distress. HEENT: Normocephalic and atraumatic. Eyes; extraocular muscle movement intact. She wears glasses. ENT and mouth, oral and nasal mucosa moist without lesion. NECK: Supple. Normal range of motion. No JVD. RESPIRATORY: Clear to auscultate bilaterally. No wheezing, rales, or rhonchi noted. CARDIOVASCULAR: Irregularly regular. No S3 or S4. No significant hives, or thrill noted. Murmur at the left lateral chest. 2+ pulses in bilateral upper and lower extremities. No edema in the lower extremities. Carotid pulses are present without bruit noted. ABDOMEN: Soft, nontender. No mass to palpitate. Bowel sounds are present. MUSCULOSKELETAL: The patient is able to move all extremities. SKIN: Warm and dry. No lesion, rash, or erythema noted. NEUROLOGIC: The patient is alert and oriented x4. Nonfocal. PSYCHIATRIC: The patient's mood is appropriate. LABORATORY DATA: WBC is 7.5, hemoglobin 13.0, hematocrit 42.6, platelets 343. Sodium 139, potassium 3.9, BUN 24, creatinine 0.70, glucose 126. AST 35, ALT 53. CK-MB 2.7, creatine kinase is 60. Troponin 0.256, 0.233, 0.227. BNP 712.5. TSH 1.5666. The patient's chest x-ray shows no acute cardiopulmonary abnormality. ASSESSMENT AND PLAN: 1. Atrial fibrillation with rapid ventricular response. The patient is n.p.o. right now. The patient is asymptomatic. The patient's stress test on June 2018, shows no reversible ischemia. The patient's echocardiogram in October 2018, showed normal except mitral valve regurgitation. The patient's heart rate is stable with diltiazem . At this moment, she has been on the Xarelto more than 1 year. She is going to undergo a cardioversion today by Dr. Zapien; however, prior to the procedure, the patient is going to have a flecainide. Hopefully, she is going to convert back to sinus rhythm prior to the patient have a cardioversion, and she is on metoprolol succinate 25 mg once a day. 2. Hypertension. The patient's blood pressure has been stable with current medication. We would like to continue to monitor. 3. Indeterminate troponin, secondary to atrial fibrillation with rapid ventricular rate. Thank you very much for Cardiology Service to participate in the care of this patient. We will follow along the patient's care team and make further recommendations as appropriate. Job ID: [id number]
[2019-09-08] MEDS: Flecainide 50 MG TAB PO SCH (20:34)
[2019-09-08] MEDS: Hydrocortisone 1% Cream 30 GM TUBE TOP SCH (20:34)
--- NOTE | 2019-09-08 23:50 | OP ---
DATE OF PROCEDURE: 09/08/19 INDICATION FOR PROCEDURE: This is a 69-year-old female who was admitted with atrial fibrillation and rapid ventricular response on medial management. Continued to be in atrial fibrillation. She has been on oral anticoagulation f or a long time. She has undergone ablations in the past but had recurrence of the atrial fibrillation . She was advised to undergo electrical cardioversion due to the tachycardia which was not controlled by the IV Diltiazem and beta blockers. CARDIOVERSION The patient was taken to the recovery area where she underwent short acting propofol. Using one attempt at 200 joules, she was successfully converted back to sinus rhythm. There were no difficulties or complications encountered.
[2019-09-09] MEDS: Flecainide 50 MG TAB PO SCH (08:45)
[2019-09-09] MEDS: Ascorbic Acid 500 mg Chewable Tablet PO SCH (08:45)
[2019-09-09] MEDS: Fish Oil 1,000 MG CAP PO SCH (08:46)
[2019-09-09] MEDS: Rivaroxaban 10 MG TAB PO SCH (08:46)
[2019-09-09] MEDS: Multivit, Therapeutic 1 TAB PO SCH (08:46)
[2019-09-09] MEDS: Topiramate 25 MG TAB PO SCH (08:47)
[2019-09-09] MEDS: Hydrocortisone 1% Cream 30 GM TUBE TOP SCH (08:47)
[2019-09-09 10:17] LABS: Anion Gap 12 mmol/L (10-20); BUN (Urea Nitrogen) 25 mg/dL (9.8-20.1); Calc. Creatinine Clearance 82 mL/min (70-130); Calcium 9.2 mg/dL (7.8-10.44); Carbon Dioxide 26 mmol/L (23-31); Chloride 106 mmol/L (98-107); Estimated GFR-MDRD 70; Glucose 95 mg/dL (80-115); Magnesium 2.1 mg/dL (1.6-2.6); Potassium 3.5 mmol/L (3.5-5.1); Sodium 140 mmol/L (136-145)
[2019-09-09] MEDS ORDERED: Potassium Chloride 20 MEQ TAB PO SCH (11:15)
[2019-09-09 11:57] VITALS: BP 158/78; TEMP 98.1
--- NOTE | 2019-09-09 14:40 | PDOC.CPN ---
- Subjective Date: 09/09/19 Time: 14:42 Interval history: The pt seen and examined. No overnight events. No cardiac complaints. - Objective Allergies/Adverse Reactions: Allergies Allergy/AdvReac Type Severity Reaction Status Date / Time almond Allergy Rash Verified 09/07/19 21:10 chlorpheniramine Allergy contraindicated Verified 02/22/18 16:10 with flecainide pseudoephedrine Allergy contraindicated Verified 02/22/18 16:10 with flecainide Sulfa (Sulfonamide Allergy contraindicated Verified 02/22/18 16:10 Antibiotics) with flecainide Vital Signs & Weight: Vital Signs Temp Pulse Resp BP Pulse Ox 09/09/19 11:46 98.1 F 55 L 19 158/78 H 97 09/09/19 08:00 97.9 F 61 16 127/60 98 09/09/19 03:16 97.7 F 55 L 18 131/68 97 Weight 175 lb 11.2 oz - Physical Exam General: alert & oriented x3 HEENT: mucus membranes moist Neck: supple neck Cardiac: regular rate and rhythm, S1/S2 Lungs: clear to auscultation Neuro: cranial nerve 2-12 intact Abdomen: unremarkable Extremities: no cyanosis Skin: clear Musculoskeletal: normal range of motion - Labs Result Diagrams: 09/08/19 04:05 09/09/19 09:25 Troponin/CKMB CK-MB (CK-2) 2.7 ng/mL (0-6.6) 09/07/19 14:58 Troponin I 0.227 ng/mL (< 0.028) H 09/07/19 20:59 - Telemetry Sinus rhythms and dysrhythmias: sinus rhythm - Assessment/Plan Assessment/Plan: 1. Afib with RVR with s/p DCCV by Dr Zapien on 09/08/2019 - remains in SR; on Flecainide 50mg BID and Xarelto 20mg qd; 2. HTN - stab 3. HLD 4. Goiter MAR reviewed * From Cardiac standpoint, the pt is stable to d/c home. * The pt will f/u with Dr Ortiz' office in 1-2 wks.
--- NOTE | 2019-09-09 15:00 | DIS ---
DATE OF ADMISSION: 09/07/2019 DATE OF DISCHARGE: 09/09/2019 DISCHARGE DISPOSITION: Home. FOLLOWUP: 1. Follow up with primary care physician, Dr. Luis Montejo in 1 week. 2. Follow up with Cardiology, Dr. John Ortiz in 2 weeks. The patient was seen and examined on the day of discharge. Denies any new complaints. No chest pain, shortness of breath, or palpitations. The patient is currently in sinus rhythm. DISCHARGE MEDICATIONS: 1. Flecainide 50 mg b.i.d. 2. Potassium chloride 10 mEq daily for next week. All other home medications were left unchanged. Repeat basic metabolic profile after 1 week is recommended. Primary care physician advised to follow. SIGNIFICANT LABS: BNP 712. Maximum troponin 0.256 with normal CK-MB. BUN 32, creatinine 0.97. INPATIENT PROCEDURES: On September 08, 2019, the patient underwent cardioversion. The patient converted to sinus rhythm after one attempt at 200 joules. BRIEF HOSPITAL COURSE: The patient is a 69-year-old female with paroxysmal atrial fibrillation, on anticoagulation, presented to the emergency room on September 07, 2019, with palpitations. She was sent to the emergency room from [facility]. Her initial heart rate in the emergency room was in 180s to 190s. She was started on Cardizem drip. She also received digoxin. The patient was evaluated by Cardiology, Dr. Zapien, who was covering for Dr. Ortiz. She underwent cardioversion. The patient remained in sinus rhythm overnight. Flecainide was added to her regimen. She has been cleared by Cardiology for discharge. FINAL DIAGNOSES: 1. Atrial fibrillation with rapid ventricular response, status post cardioversion this admission. 2. Chronic anticoagulation. 3. Type 2 myocardial infarction. 4. History of nephrolithiasis. 5. Chronic kidney disease, stage 2. 6. Mild leukocytosis on admission, probably stress induced. 7. Slightly abnormal LFTs. 8. History of radiofrequency ablation for atrial fibrillation in the past. PLAN: Plan was discussed with the patient in detail. She stated understanding. Job ID: [id number]
--- NOTE | 2019-09-11 08:48 | CON ---
DATE OF CONSULTATION: 09/08/2019 ADDENDUM: Please refer to the notes already dictated by my nurse practitioner. This is an addendum to that note. This is a 69-year-old female who has undergone ablation of atrial fibrillation on 2 occasions, last time was about a year and a half ago. Previous to that was about 2-1/2 to 3 years ago. The first time was a failed ablation. The next time, she has had a successful ablation and remained in sinus rhythm for about a year and a half. On Wednesday morning, she woke up, she had a headache and then by Wednesday evening, she noted she had atrial fibrillation with rapid ventricular response. She went to work on Wednesday, but then decided she should come to the hospital later on. She was seen yesterday, was admitted to the hospital yesterday. At this time, she remains in atrial fibrillation with rapid ventricular response. Heart rates in the 170s. She has been placed on IV diltiazem. She continues to be tachycardic. She has also been on beta blockers. She has also in the past been on flecainide. This was discontinued after the time of the cardioversion. At this time, we will try one dose of flecainide to see if she will convert to sinus rhythm and then we will schedule her for electrocardioversion of her atrial fibrillation. Otherwise, please refer to the notes dictated by my nurse practitioner. PHYSICAL EXAMINATION: VITAL SIGNS: At this time, reviewed the vital signs as noted by the nurse practitioner. We have seen this patient. We discussed the patient and the plan. CHEST: Clear to auscultation. CARDIOVASCULAR: Reveals tachycardia with an irregular rhythm. EXTREMITIES: She has no lower extremity edema. NEUROLOGIC: She is fully intact. ASSESSMENT AND PLAN: Atrial fibrillation with rapid ventricular response, which is poorly controlled on present medications. We will attempt to start her on antiarrhythmic medications and plan for electrocardioversion of the atrial fibrillation. She understands the procedure for the electrocardioversion and we will plan for that later today. For her other assessments and plans, please refer to the notes dictated by my nurse practitioner. Job ID: [id number]
--- NOTE | 2019-09-12 07:28 | PQF ---
CHIKI SZYMANSKI MARC S MD [id number] [facility]-291 [id number] CLINICAL DOCUMENTATION CLARIFICATION FORM: POST DISCHARGE Addendum to original discharge summary date: ____ Late entry note date: __ DATE: 09/12/2019 ATTN:MAILE MARCUS MD Please exercise your independent, professional judgment in responding to the clarification form. Clinical indicators are provided on the bottom of this form for your review Please check appropriate box(s): HEART FAILURE: A. TYPE: [ ] Systolic / HFrEF [ ] Diastolic / HFpEF [ ] Combined Systolic / Diastolic B. ACUITY [ ] Acute [ ] Acute on Chronic [ ] Chronic [ ] Other diagnosis [ ] Unable to determine In addition, please specify: Present on Admission (POA): [ ] Yes [ ] No [ ] Unable to determine For continuity of documentation, please document condition throughout progress notes and discharge summary. Thank You. CLINICAL INDICATORS - SIGNS / SYMPTOMS / LABS -BNP: 712.5H- Laboratory, 09/07 -elevation is mild could be secondary to volume overload/congestive heart failure- H&P, 09/07, Syd Tomas MD - Indeterminate troponin-I: Most likely sec to atrial fibrillation with RVR- H& P, 09/07, Syd Tomas MD -PMH includes cardiac arrhythmia- ED record, 09/07, Angelito Borges DO RISKS: - Atrial Fibrillation with rapid ventricular response- H&P, 09/07, Syd Tomas MD -Type 2 Myocardial infarction-DS, 09/09, Stanislav Whalen MD - CKD stage 2--DS, 09/09, Stanislav Whalen MD+ TREATMENTS: -Cardiology report, 09/08 -Cardizem.IV- MAR, 09/07 DELLD
--- NOTE | 2019-09-16 19:28 | EKG ---
Test Reason : RAPID HR Blood Pressure : / mmHG Vent. Rate : 170 BPM Atrial Rate : 058 BPM P-R Int : 000 ms QRS Dur : 072 ms QT Int : 286 ms P-R-T Axes : 000 -21 -51 degrees QTc Int : 480 ms Atrial fibrillation with rapid ventricular response Septal infarct , age undetermined Marked ST abnormality, possible inferior subendocardial injury Abnormal ECG Confirmed by ALESSIA JACKSON D.O. ([id number]), staff editor JAYDEN SANTACRUZ ([id number]) on 09/16/2019 7:27:45 PM Referred By: Confirmed By:ALESSIA JACKSON D.O.
== END 2019-09-09 13:55 | disposition home or self-care (01) | DRG 282 ==
LOC: ERS 14:42 → 2NO 18:45
PROVIDERS: ADMIT Internal Medicine; ATTEND Internal Medicine
PROC: 5A2204Z Restoration of Cardiac Rhythm, Single (ICD-10-PCS; principal; 2019-09-08)
DX: I48.0 Paroxysmal atrial fibrillation (principal); I21.A1 Myocardial infarction type 2; N18.2 Chronic kidney disease, stage 2 (mild); E78.5 Hyperlipidemia, unspecified; I12.9 Hypertensive chronic kidney disease with stage 1 through stage 4 chronic kidney disease, or unspecified chronic kidney disease; E04.9 Nontoxic goiter, unspecified; D72.829 Elevated white blood cell count, unspecified; Z79.01 Long term (current) use of anticoagulants; Z87.442 Personal history of urinary calculi; Z90.49 Acquired absence of other specified parts of digestive tract; Z88.2 Allergy status to sulfonamides; Z88.8 Allergy status to other drugs, medicaments and biological substances
CPT/HCPCS: 36415; 71045; 80048; 80053; 80076; 82550; 82553; 83735; 83880; 84443; 84484; 85025; 92960; 93005; 96361; 96365; 96366; 96376; J2001; J2704; J3490

== ENCOUNTER 2021-02-06 16:14 | Outpatient (CLI) | payer MEDICARE ==
[2021-02-06 17:03] LABS: Bilirubin Neg (Negative); Blood, Urine 250 (Negative); Clarity Cloudy (Clear); Glucose, Urine (Dipstick) Normal (Negative); Ketone, Urine Negative (Negative); Leukocyte 25 (Negative); Nitrite Negative (Negative); Protein, Urine (Dipstick) 100 mg/dl (Neg-Trace); Urobilinogen Normal mg/dL (Less than 2)
[2021-02-06 17:05] LABS: RBC/HPF Greater than 50 HPF (0-3); Squamous Epithelial 0-3 HPF (0-3)
[2021-02-06 17:06] LABS: Bacteria/HPF Rare-Few HPF (None Seen)
[2021-02-06 17:14] LABS: Anion Gap 12 mmol/L (10-20); BUN (Urea Nitrogen) 12 mg/dL (9.8-20.1); Calc. Creatinine Clearance 0 mL/min (70-130); Calcium 9.3 mg/dL (7.8-10.44); Carbon Dioxide 26 mmol/L (23-31); Chloride 106 mmol/L (98-107); Glucose 103 mg/dL (80-115); Hemoglobin 12.8 g/dL (12.0-15.5); Mean Corpuscular HGB CONC 31.7 g/dL (32.0-36.0); Mean Corpuscular Hemoglobin 30.4 pg (27.0-33.0); Mean Platelet Volume 9.9 fl (7.4-10.4); Platelet Count 374 10x3/uL (150-450); Potassium 4.1 mmol/L (3.5-5.1); RBC Distribution Width 12.5 % (11.5-14.5); Red Blood Cell (RBC) Count 4.21 10x6/uL (3.90-5.03); Sodium 140 mmol/L (136-145); White Blood Cell (WBC) Count 6.2 10x3/uL (3.5-10.5)
[2021-02-06 17:31] LABS: PTT 30.2 sec (22.0-33.0); Prothrombin Time 10.9 sec (9.5-12.1)
[2021-02-07 02:15] LABS: SARS-CoV-2 PCR by NAA Not Detected (NotDetected)
== END 2021-02-06 16:15 | disposition home or self-care (01) ==
LOC: LABBT 16:14
PROVIDERS: ATTEND Urology
DX: Z01.818 Encounter for other preprocedural examination (principal); N20.0 Calculus of kidney; Z20.822 Contact with and (suspected) exposure to COVID-19
CPT/HCPCS: 80048; 81001; 85027; 85610; 85730; 87086; 93005; U0003; U0005; 87635; 93010

== ENCOUNTER 2021-02-10 06:10 | Day surgery (SDC) | payer MEDICARE ==
[2021-02-06 15:37] VITALS: BMI 27.1
[2021-02-10 06:56] LABS: Platelet Count 367 thou/uL (130-400)
[2021-02-10] MEDS ORDERED: Fentanyl 100 MCG/2 ML VIAL ONE (07:01)
[2021-02-10 07:26] LABS: EPI 113 SEC (67-199)
[2021-02-10] MEDS ORDERED: PROPOFOL 200 MG/20 ML VIAL ONE (07:40)
[2021-02-10] MEDS ORDERED: ePHEDrine Sulfate 50 MG/10 ML VIAL ONE (07:40)
[2021-02-10] MEDS ORDERED: diphenhydrAMINE 50 MG/ML VIAL ONE (07:40)
[2021-02-10] MEDS ORDERED: Dexamethasone 20 MG/5 ML VIAL ONE (07:40)
[2021-02-10] MEDS ORDERED: Ondansetron ORAL SOLN. 4 MG/5 ML UDCUP ONE (07:40)
== END 2021-02-10 10:06 | disposition home or self-care (01) ==
LOC: SDC 06:10
PROVIDERS: ATTEND Urology
PROC: 0TF7XZZ Fragmentation in Left Ureter, External Approach (ICD-10-PCS; principal; 2021-02-10)
DX: N20.1 Calculus of ureter (principal); Z79.01 Long term (current) use of anticoagulants; Z79.899 Other long term (current) drug therapy; Z88.2 Allergy status to sulfonamides; Z88.8 Allergy status to other drugs, medicaments and biological substances; Z91.018 Allergy to other foods
CPT/HCPCS: 74018; 85576; J1100; J1200; J2704; J3010; Q0162

== ENCOUNTER 2022-04-15 14:36 | Outpatient (CLI) | payer MEDICARE | END 2022-04-15 14:37 | disposition home or self-care (01) | LOC: BICCT 14:36 | PROVIDERS: ATTEND Psychiatry & Neurology Neurology | DX: G25.0 Essential tremor (principal) | CPT/HCPCS: 70450 ==

== ENCOUNTER 2023-06-30 08:51 | Outpatient (CLI) | payer MEDICARE, OTHER | END 2023-06-30 08:52 | disposition home or self-care (01) | LOC: NM 08:51 | PROVIDERS: ATTEND Psychiatry & Neurology Neurology | DX: R25.9 Unspecified abnormal involuntary movements (principal); G20 Parkinson's disease | CPT/HCPCS: 78803; A9584 ×2 ==

== ENCOUNTER 2024-09-21 13:02 | Outpatient (CLI) | payer MEDICARE, OTHER ==
[2024-09-21 14:21] LABS: #Basophils 0.03 10x3/uL (0.0-0.2); %Basophils 0.4 % (0.0-1.0); %Eosinophils 0.8 % (0.0-10.0); %Lymphocytes 29.3 % (21.0-51.0); %Monocytes 8.5 % (0.0-10.0); %Neutrophils 60.6 % (42.0-75.0); Hemoglobin 13.7 g/dL (12.0-16.0); Mean Corpuscular HGB CONC 33.4 g/dL (32.0-36.0); Mean Corpuscular Hemoglobin 31.9 pg (27.0-31.0); Mean Corpuscular Volume 95.3 fL (78.0-98.0); Mean Platelet Volume 9.4 fL (7.4-10.4); Platelet Count 277 10x3/uL (130-400); RBC Distribution Width 12.4 % (11.5-14.5)
[2024-09-21 15:10] LABS: ALT (SGPT) 11 U/L (8-55); AST (SGOT) 15 U/L (5-34); Albumin 3.6 g/dL (3.4-4.8); Alkaline Phosphatase 68 U/L (40-110); Anion Gap 13 mmol/L (10-20); BUN (Urea Nitrogen) 12 mg/dL (9.8-20.1); Bilirubin, Direct 0.2 mg/dL (0.1-0.3); Bilirubin, Total 0.4 mg/dL (0.2-1.2); Calc. Creatinine Clearance 0 mL/min (70-130); Calcium 8.5 mg/dL (7.8-10.44); Carbon Dioxide 20 mmol/L (23-31); Chloride 111 mmol/L (98-107); Estimated GFR 76; Glucose 108 mg/dL (83-110); Potassium 3.8 mmol/L (3.5-5.1); Protein, Total 6.6 g/dL (5.8-8.1); Sodium 140 mmol/L (136-145)
== END 2024-09-21 13:03 | disposition home or self-care (01) ==
LOC: LABBT 13:02
PROVIDERS: ATTEND Internal Medicine Cardiovascular Disease
DX: Z01.818 Encounter for other preprocedural examination (principal)
CPT/HCPCS: 80053; 80076; 85025; 93005; 93010

== ENCOUNTER 2024-09-27 05:57 | Day surgery (SDC) | payer MEDICARE, OTHER ==
[2024-09-21 13:26] VITALS: BMI 29.0
[2024-09-27] MEDS ORDERED: PROPOFOL 20 ML ONE (07:03)
[2024-09-27] MEDS ORDERED: Etomidate 40 MG (20 mL) VIAL ONE (07:03)
[2024-09-27] MEDS ORDERED: Lidocaine 1% MPF 2 ML VIAL ONE (07:03)
== END 2024-09-27 09:00 | disposition home or self-care (01) ==
LOC: SDC 05:57
PROVIDERS: ATTEND Internal Medicine Cardiovascular Disease
DX: I48.0 Paroxysmal atrial fibrillation (principal); I34.0 Nonrheumatic mitral (valve) insufficiency; E78.00 Pure hypercholesterolemia, unspecified; E04.9 Nontoxic goiter, unspecified; I10 Essential (primary) hypertension; G20.A1 Parkinson's disease without dyskinesia, without mention of fluctuations; Z90.49 Acquired absence of other specified parts of digestive tract; Z98.890 Other specified postprocedural states; Z96.659 Presence of unspecified artificial knee joint; Z88.2 Allergy status to sulfonamides; Z88.8 Allergy status to other drugs, medicaments and biological substances; Z95.0 Presence of cardiac pacemaker; Z79.899 Other long term (current) drug therapy; Z53.9 Procedure and treatment not carried out, unspecified reason
CPT/HCPCS: J2704

== ENCOUNTER → 2024-10-03 | Day surgery (SDC) | payer MEDICARE, OTHER ==
[2024-10-02 13:02] VITALS: BMI 29.0
[~2024-10-03] MED LIST: PROPOFOL 200 MG/20 ML VIAL ONE
== END ==
LOC: SDC 09:16
PROVIDERS: ATTEND Internal Medicine Cardiovascular Disease
PROC: 5A2204Z Restoration of Cardiac Rhythm, Single (ICD-10-PCS; principal; 2024-10-03)
PROC: B24BZZ4 Ultrasonography of Heart with Aorta, Transesophageal (ICD-10-PCS; 2024-10-03)
DX: I48.0 Paroxysmal atrial fibrillation (principal); I10 Essential (primary) hypertension; I47.19 Other supraventricular tachycardia; I27.20 Pulmonary hypertension, unspecified; I07.1 Rheumatic tricuspid insufficiency; I34.0 Nonrheumatic mitral (valve) insufficiency; E78.5 Hyperlipidemia, unspecified; E04.9 Nontoxic goiter, unspecified; E66.89 Other obesity not elsewhere classified; G20.A1 Parkinson's disease without dyskinesia, without mention of fluctuations; Z90.49 Acquired absence of other specified parts of digestive tract; Z96.651 Presence of right artificial knee joint; Z95.0 Presence of cardiac pacemaker; Z68.29 Body mass index [BMI] 29.0-29.9, adult; Z88.2 Allergy status to sulfonamides; Z88.8 Allergy status to other drugs, medicaments and biological substances; Z91.018 Allergy to other foods; Z79.01 Long term (current) use of anticoagulants; Z79.899 Other long term (current) drug therapy
CPT/HCPCS: 92960; 93005; 93010; 93312